=== PATIENT | female | born 1955 | race African-American/Black ===

== ENCOUNTER 2020-08-06 10:49 | Emergency (ER) | payer OTHER ==
[~2020-08-06] VITALS: Ht 170.2 cm; Wt 81.6 kg
[2020-08-06] MEDS ORDERED: ZESTRIL20 MG PO (11:30)
[2020-08-06] MEDS ORDERED: ASPIR 8181 MG PO (11:30)
== END 2020-08-06 14:05 | disposition home or self-care (01) ==
LOC: ER 10:49
DX: G44.209 Tension-type headache, unspecified, not intractable (principal); M62.838 Other muscle spasm

== ENCOUNTER 2021-10-07 13:18 | Emergency (ER) | payer OTHER ==
[~2021-10-07] VITALS: Ht 165.1 cm; Wt 82.1 kg
[~2021-10-07 13:18] MED LIST: ASPIR 8181 MG PO; ZESTRIL20 MG PO
== END 2021-10-07 17:24 | disposition home or self-care (01) ==
LOC: ER 13:18
DX: S80.862A Insect bite (nonvenomous), left lower leg, initial encounter (principal); W57.XXXA Bitten or stung by nonvenomous insect and other nonvenomous arthropods, initial encounter; Y92.89 Other specified places as the place of occurrence of the external cause; I10 Essential (primary) hypertension

== ENCOUNTER 2022-03-12 10:05 | Emergency (ER) | payer OTHER ==
[~2022-03-12] VITALS: Ht 170.2 cm; Wt 80.3 kg
[2022-03-12] MEDS ORDERED: ZESTRIL40 M1 (10:20)
[2022-03-12] MEDS ORDERED: AMLODIPINE BESYL5 MG PO (10:20)
[2022-03-12] MEDS ORDERED: KETO10TA2 PO (11:54)
== END 2022-03-12 12:53 | disposition home or self-care (01) ==
LOC: ER 10:05
DX: S90.112A Contusion of left great toe without damage to nail, initial encounter (principal); W22.8XXA Striking against or struck by other objects, initial encounter; Y93.89 Activity, other specified; Y92.89 Other specified places as the place of occurrence of the external cause; Z79.82 Long term (current) use of aspirin; I10 Essential (primary) hypertension

== ENCOUNTER 2022-05-09 08:03 | Emergency (ER) | payer OTHER ==
[~2022-05-09] VITALS: Ht 172.7 cm; Wt 80.7 kg
[~2022-05-09 08:03] MED LIST changes: +AMLODIPINE BESYL5 MG PO; +KETO10TA2 PO; +ZESTRIL40 M1
== END 2022-05-09 13:40 | disposition home or self-care (01) ==
LOC: ER 08:03
DX: R10.31 Right lower quadrant pain (principal); I10 Essential (primary) hypertension

== ENCOUNTER 2024-06-21 13:08 | Emergency (ER) | payer OTHER ==
[~2024-06-21] VITALS: Ht 177.8 cm; Wt 85.7 kg
[2024-06-21] MEDS ORDERED: KETOROLAC TROMETHAMINE 30 MG VIAL IM STA (15:00)
[2024-06-21] MEDS ORDERED: KETOROLAC TROMETHAMINE 30 MG VIAL ONE (15:21)
== END 2024-06-21 15:58 | disposition home or self-care (01) ==
LOC: ER 13:10
DX: M72.2 Plantar fascial fibromatosis (principal)

== ENCOUNTER → 2024-10-07 | Emergency (ER) | payer OTHER ==
[~2024-10-07] VITALS: Ht 175.3 cm; Wt 86.6 kg
[~2024-10-07] MED LIST changes: +DICLOFENAC SODI75 MG PO; +KETOROLAC TROMETHAMINE 60 MG VIAL IM ONE; +METFORMIN HCL500 M3 PO; +ZESTRIL40 M1 PO
[2024-10-07 10:10] VITALS: BP 129/85; O2SAT 96
== END | disposition home or self-care (01) ==
LOC: ER 09:59
DX: M79.671 Pain in right foot (principal); I10 Essential (primary) hypertension; E11.9 Type 2 diabetes mellitus without complications; Z79.84 Long term (current) use of oral hypoglycemic drugs; Z88.8 Allergy status to other drugs, medicaments and biological substances
CPT/HCPCS: 73630; 96372; 99283; J1885

== ENCOUNTER 2025-01-29 11:29 | Outpatient (CLI) | payer OTHER ==
[~2025-01-29 11:29] MED LIST changes: -KETOROLAC TROMETHAMINE 60 MG VIAL IM ONE
== END 2025-01-29 11:32 | disposition home or self-care (01) ==
LOC: MAMO-SONO 11:29
DX: N60.11 Diffuse cystic mastopathy of right breast (principal); N60.12 Diffuse cystic mastopathy of left breast; Z12.31 Encounter for screening mammogram for malignant neoplasm of breast